=== PATIENT | female | born 1940 | race Caucasian/White ===

== ENCOUNTER → 2020-10-27 15:59 | Outpatient (CLI) | payer MEDICARE, OTHER, SELFPAY ==
--- NOTE | 2020-10-27 16:07 | DI.MRI.S_ITS ---
PROCEDURE: MR LUMBAR SPINE WO CON INDICATIONS: Low back and bilateral hip pain TECHNIQUE: Noncontrast sagittal T1 spin echo and T2 fast echo, sagittal STIR, axial T1 and T2 fast spin echo through the lumbar spine. In cases with scoliosis, additional coronal T2 fast spin echo may be performed. COMPARISON: None. FINDINGS: Image quality: Excellent. Alignment and Curvature: And tear listhesis of L4 on L5 measuring 3 mm. Otherwise normal alignment. Vertebral body heights maintained. Bone Marrow: No suspicious focal marrow signal abnormality. Mild periarticular marrow edema in association with L4-L5 and L5-S1 facet osteoarthropathy. Spinal Cord: Conus medullaris terminates at the normal level. Visualized cord demonstrates normal signal and size. Regional Soft Tissues: No prevertebral or paraspinous soft tissue mass. In the left renal hilar region there is a 1.8 cm focus of intermediate T1 and low T2 signal, nonspecific. This appears to be within the collecting system, although this is not definitive. T12-L1: No spinal canal or neural foraminal stenosis. L1-L2: No spinal canal or neural foraminal stenosis. L2-L3: Diffuse disc bulge flattens and indents the ventral thecal sac. Disc material displaces the descending L3 nerve roots within both subarticular zones. Foraminal components of the disc bulge and facet hypertrophy contribute to mild bilateral neural foraminal stenosis. Small facet effusions. L3-L4: Diffuse disc bulge and a superimposed broad-based posterior disc protrusion flatten the ventral thecal sac. Disc material abuts and may slightly displace the descending L4 nerve roots within both subarticular zones. Mild bilateral neural foraminal narrowing related to facet hypertrophy and foraminal components of the disc bulge. L4-L5: Pseudobulge related to anterolisthesis as well as true disc bulge and bulky facet osteoarthropathy along with buckling of the ligamentum flavum combine to produce overall severe spinal canal stenosis. There is complete effacement of CSF in the thecal sac at this level with crowding of the traversing nerve roots (series 6, image 22 these factors combine to produce severe right and moderate left neural foraminal stenosis. There is flattening of the exiting right L4 nerve root within the neural foramen. L5-S1: Disc bulge with mild mass effect upon the S1 nerve roots. No neural foraminal stenosis. IMPRESSION: Severe spinal canal stenosis and right neural foraminal stenosis at L4-L5, driven primarily by anterolisthesis and disc height loss along with facet hypertrophy. Less advanced degenerative changes at the remaining levels as described above. Approximately 1.8 cm focus of intermediate T1 and low T2 signal intensity in the left renal hilum, which appears to be within the left renal pelvis and presumably therefore a calculus. A renal artery aneurysm would appear similar, however. Renal protocol CT of the abdomen is recommended to further evaluate. Dictated by: Nima Brown M.D. on 10/30/2020 at 9:57 Approved by: Nima Brown M.D. on 10/30/2020 at 10:35
--- NOTE | 2020-10-27 16:07 | DI.MRI.S_ITS ---
PROCEDURE: MR CERVICAL SPINE WO CON INDICATIONS: Bilateral arm numbness TECHNIQUE: Noncontrast sagittal T1 spin echo and T2 fast spin echo, sagittal STIR, foraminal oblique sagittal T2 fast spin echo, and axial gradient echo or T2 fast spin echo through the cervical spine. COMPARISON: None. FINDINGS: Image quality: Excellent. Alignment and Curvature: Degenerative straightening of the usual cervical lordosis. Degenerative anterolisthesis of C4 on C5 measuring 3 mm. Vertebral body heights maintained. Bone Marrow: No suspicious focal marrow signal abnormality. Degenerative endplate signal changes at C4-C5, C5-C6, and C6-C7, including mild marrow edema. Spinal Cord: Normal morphology and signal intensity of the cervical cord. There is no syrinx. Regional Soft Tissues: Prevertebral and paraspinous soft tissues are within normal limits. C2-C3: No spinal canal or neural foraminal stenosis. C3-C4: Facet and uncovertebral hypertrophy contribute to moderate left and mild right neural foraminal narrowing. No spinal canal stenosis. C4-C5: Disc bulge flattens the ventral cord. Facet and uncovertebral hypertrophy contribute to moderate left and mild right neural foraminal stenosis. C5-C6: Moderate bilateral neural foraminal stenosis related to facet and uncovertebral hypertrophy. Posterior disc osteophyte complex flattens the ventral cord and also posteriorly displaces the cord, producing overall moderate spinal canal stenosis. There is complete effacement of the CSF surrounding the cord. C6-C7: Posterior disc-osteophyte complex flattens the ventral cord and posteriorly displaces the cord. Near complete effacement of CSF surrounding the cord, comprising overall moderate spinal canal stenosis. Facet and uncovertebral hypertrophy contribute to moderate-severe neural foraminal narrowing on the right and moderate neural foraminal narrowing on the left. C7-T1: No spinal canal or neural foraminal stenosis. IMPRESSION: Moderate spinal canal stenosis at C5-C6 and C6-C7. Varying degrees of neural foraminal stenosis up to moderate-severe on the right at C6-C7 and moderate at additional levels as described above. Dictated by: Nima Brown M.D. on 10/30/2020 at 8:53 Approved by: Nima Brown M.D. on 10/30/2020 at 8:59
== END ==
PROVIDERS: PCP Internal Medicine; Referring Provider Physical Medicine & Rehabilitation; Visit Provider Physical Medicine & Rehabilitation
DX: M48.061 Spinal stenosis, lumbar region without neurogenic claudication (principal); M54.12 Radiculopathy, cervical region; R20.0 Anesthesia of skin
CPT/HCPCS: 72141; 72148

== ENCOUNTER → 2021-12-24 13:13 | Outpatient (CLI) | payer MEDICARE, OTHER, SELFPAY ==
[2021-12-24 17:16] LABS: COVID19 -Nasal RAPID Negative (Negative)
== END ==
PROVIDERS: PCP Internal Medicine; Visit Provider Family Medicine Sleep Medicine
DX: Z20.822 Contact with and (suspected) exposure to COVID-19 (principal)
CPT/HCPCS: 87635; C9803

== ENCOUNTER 2021-12-26 12:10 | Inpatient (IN) | payer MEDICARE, OTHER, SELFPAY ==
[2021-12-17 15:46] VITALS: BMI 18.0
[2021-12-26] VITALS (13 sets, daily range): BP systolic 97–127; BP diastolic 47–72; PULSE 73–95; RESP 12–18; TEMP 36.2–36.7; O2SAT 94–100; BMI 18.0
--- NOTE | 2021-12-26 | DI.RAD.S_ITS ---
PROCEDURE: XR LUMBAR SPINE 2-3V INDICATIONS: L4-5 TLIF TECHNIQUE: 2 intraoperative spot views of the lumbar spine were acquired. COMPARISON: None. FINDINGS: Lower lumbar fusion and interbody device placement has been performed. IMPRESSION: Intraoperative imaging as above. Dictated by: Vesta Palencia M.D. on 12/26/2021 at 16:57 Approved by: Vesta Palencia M.D. on 12/26/2021 at 16:58
[2021-12-26] MEDS: LACTATED RINGERS 1,000 ML 42 ML IV (12:52)
[2021-12-26] MEDS: CEFAZOLIN 2 GM/20 ML SYRINGE IV (13:45)
--- NOTE | 2021-12-26 14:07 | SUR.OPER ---
Prone on spine table, head in foam head support, padded chest and pelvic supports, gel pad at knees, lower legs supported by pillows; nipples, genitalia and toes free of pressure, arms secured on foam padded arm boards at <90 degrees abduction. Tape over blanket at thigh secured to table.
[2021-12-26] MEDS: BUPIVACAINE 0.25% (PF) 60 ML, EPINEPHrine 0.3 MG INJ (15:44)
[2021-12-26] MEDS: BUPIVACAINE LIPOSOME 266 MG/20 ML VIAL INJ (15:44)
--- NOTE | 2021-12-26 16:05 | PM.OP.1 ---
Operative Date/Time/Diagnoses Date of procedure: 12/26/21 Time of procedure: 12:33 Pre-op diagnosis: 1. L4-5 spondylolisthesis 2. L4-5 spinal stenosis with neurogenic claudication Post-op diagnosis: same Procedure & Clinicians Procedure: 1. L4-5 Postero-lateral and posterior interbody fusion 2. L4-5 interbody cage placement. 3. L4-5 decompressive laminectomy with bilateral facetecomies 4. L4-5 Posterior non-segmental instrumentation 5. [place] of bone marrow from iliac crest 6. Utilization of microsurgical technique and operating microscope Same procedure as scheduled: Yes Indications: Patient has been having chronic back pain and worsening lumbar radiculopathy and symptoms of neurogenic claudication due to spondylolisthesis and spinal stenosis. Patient failed multiple conservative management with worsening pain weakness and numbness in her lower extremity. Patient has been having difficulty performing activity of daily living. After discussing risks benefits of treatment options, patient elected proceed with surgery. Surgeon: Keron Linder Funeral Pre Arrangement Specialist: Diane Asencio Click Yes if Unassisted: No Anesthesia Type: General Operative Notes Closure Type: primary Specimen(s): none sent Prosthetic devices, grafts, tissues, transplants, or devices: Globus Revolve screws, Rise cage Estimated Blood Loss (mL): 50 Blood products transfused: none Procedure in detail: Patient was seen in the preoperative area. Risks and benefits of the surgery was discussed with the patient. Informed consent was obtained from the patient and placed in the chart. Surgical site was marked. Patient was taken to the operative room. General anesthesia was administered. Prophylactic antibiotic was given to the patient less than 30 min before the incision was made. Patient was placed into a prone position on the Orion table. Patient's back was then prepped and draped in the sterile fashion. Time-out was performed at this time. Using AP and lateral C-arm imaging the interval between L4-5 was identified and marked on patient's back. A 2 inch incision 2 in from midline was made on the right side first. The fascia was incised in line with skin incision. Globus MARS retractors was placed inside the incision and docked onto the L4 lamina. Using microsurgical technique and operating microscope, a L4 laminectomy and L4-5 facetectomy was performed using a [place] rongeur. Patient was found have severe central and neural foraminal stenosis which was fully decompressed after the laminectomy and facetectomy was completed. Patient was also found to have severe hypertrophic ligamentum flavum which was also resected during the process of laminectomy and decompression to further decompress the epidural space. The disc space at L4-5 was identified. And a total diskectomy was performed at L4-5 level. The endplates were decorticated using a rasp and shaver. The total diskectomy and decortication was performed at L4-5 level in order to to accomplish a L4-5 fusion. The local bone from the laminectomy and facetectomy was saved for local bone grafting. After the total diskectomy and decortication was completed, Trifecta bone graft material was combined with local bone that was harvested earlier. At this time, a separate skin is incision was made over the iliac crest. A Jamshidi needle was inserted into the iliac crest through a separate skin incision. 5 cc of bone marrow aspiration was obtained through the separate skin incision using a Jamshidi needle from the iliac crest. The bone marrow aspiration was combined with local bone and the Trifecta bone grafting material. The bone grafting material was placed into the L4-5 interbody space along with a expandable cage. The cage was expanded to its maximum height using the torque limiting screwdriver. At this time a mirror image incision was made on the left side. The fascia was incised in line with the skin incision. Globus MARS retractor was inserted and docked onto the L4-5 posterolateral gutter. Using the power drill, posterior-lateral decortication was performed at L4-5 level until bleeding cortical bone was identified. The remaining bone grafting material was placed into the L4-5 posterior lateral gutter he order to accomplish posterolateral fusion at the L4-5 level. Using the double C-arm technique, pedicle screws were placed into the L4-5 pedicles bilaterally. This was done by placing the Jamshidi needle into the pedicles, then placing the guidewires over the Jamshidi needle, and finally placing the cannulated screws over the guidewires bilaterally. After the pedicle screws were placed, 2 titanium rods was locked into the heads of the pedicle screws using locking caps and torque limiting screwdriver. Threaded reducers were used to reduce the patient's spondylolisthesis and appropriate reduction and maintenance of reduction was accomplished using the hardwares. After all the hardware was placed, and confirmed with AP and lateral C-arm imaging, the wound was then irrigated with sterile normal saline and packed with Ray-Magy gauze for 3 min to accomplish hemostasis. After the gauze was removed the deep fascia was closed with #1 Vicryl suture. The subcutaneous layer was closed with 2-0 Vicryl. The skin was closed with skin lanie. Patient tolerated the procedure well. There were no complications. Complications: none Post-operative Condition: stable Disposition: PACU Plan for aftercare: Admit to inpatient hospital
[2021-12-26] MEDS: fentaNYL 100 MCG/2 ML INJ IV ×2 (16:15→16:25)
--- NOTE | 2021-12-26 16:53 | SUR.PHASEI ---
report called to Mikal Cameron and opportunity for questions given. Return phone number at time of report is [phone]. Pt being transferred to room 204. pt currently resting in best comfortably. Pt updated on transfer and is agreeable.
[2021-12-26] MEDS: ACETAMINOPHEN 325 MG TABLET 650 MG PO (16:59)
[2021-12-26] MEDS: SODIUM CHLORIDE 0.9% 1,000 ML 100 ML IV (18:01)
[2021-12-26] MEDS: OXYCODONE IR 5 MG TABLET 10 MG PO ×2 (18:01→21:59)
[2021-12-26] MEDS: GABAPENTIN 100 MG CAPSULE PO (21:52)
[2021-12-26] MEDS: VIT C/E/ZN/COPPR/LUTEIN/ZEAXAN CAPSULE 1 CAP PO (21:52)
[2021-12-26] MEDS: ALPRAZolam 0.25 MG TABLET PO (21:52)
[2021-12-26] MEDS: CEFAZOLIN 1 GM VIAL IV (22:27)
[2021-12-27 00:35] VITALS: BP 111/54; PULSE 76; RESP 18; TEMP 36.6; O2SAT 95
[2021-12-27] MEDS: OXYCODONE IR 5 MG TABLET 10 MG PO ×3 (03:52→12:38)
[2021-12-27 04:07] VITALS: BP 100/53; PULSE 75; RESP 18; TEMP 36.6; O2SAT 97
[2021-12-27] MEDS: CEFAZOLIN 1 GM VIAL IV (05:56)
[2021-12-27] MEDS: PANTOPRAZOLE DR 20 MG TABLET PO (05:56)
[2021-12-27 07:45] VITALS: BP 99/54; PULSE 79; RESP 16; TEMP 36.6; O2SAT 98
--- NOTE | 2021-12-27 07:48 | P.DS_ITS ---
History of Present Illness History of Present Illness Date Patient Seen: 12/27/21 Time Patient Seen: 07:48 Chief complaint: *OPB* TLIF Narrative: Operative Date/Time/Diagnoses Date of procedure: 12/26/21 Time of procedure: 12:33 Pre-op diagnosis: 1. L4-5 spondylolisthesis 2. L4-5 spinal stenosis with neurogenic claudication Post-op diagnosis: same Procedure & Clinicians Procedure: 1. L4-5 Postero-lateral and posterior interbody fusion 2. L4-5 interbody cage placement. 3. L4-5 decompressive laminectomy with bilateral facetecomies 4. L4-5 Posterior non-segmental instrumentation 5. [place] of bone marrow from iliac crest 6. Utilization of microsurgical technique and operating microscope Same procedure as scheduled: Yes Indications: Patient has been having chronic back pain and worsening lumbar radiculopathy and symptoms of neurogenic claudication due to spondylolisthesis and spinal stenosis. Patient failed multiple conservative management with worsening pain weakness and numbness in her lower extremity.? Patient has been having difficulty performing activity of daily living.? After discussing risks benefits of treatment options, patient elected proceed with surgery. Surgeon: Keron Linder Head Machine Feeder: Diane Asencio Click Yes if Unassisted: No Anesthesia Type: General Operative Notes Closure Type: primary Specimen(s): none sent Prosthetic devices, grafts, tissues, transplants, or devices: Globus Revolve screws, Rise cage Estimated Blood Loss (mL): 50 Blood products transfused: none Discharge Providers Provider Discharge Date: 12/27/21 Primary care physician: Eleonora Bartholomew MD Consults: 12/26/21 17:08 Consult to Occupational Therapy Evaluate & Treat Comment: Physician Instructions: Evaluate and treat Consult to Physical Therapy Evaluate & Treat Comment: Physician Instructions: Evaluate and Treat 12/26/21 17:54 Consult to Dietitian, Adult Routine Comment: Reason For Exam: weight loss Discharge provider: Diane Asencio PA-C Summary Hospital Course Discharge Diagnosis: s/p L4-5 transforaminal lumbar interbody fusion w/ posterior instrumentation Acute anemia d/t expected surgical blood loss Hospital Course: Ms Cope'martin hospital course was unremarkable. On POD#1 she was feeling well. She was eating and voiding without difficulty. She was evaluated by PT. Her pain was well-controlled with oral medication, and she wanted to go home with the help of her brother and his , who is a nurse. She had some pain across her low back but denied pain in her legs. Exam Vital Signs (past 8 hours): - 12/27/21 00:35 12/27/21 04:07 Temperature 97.9 F 97.9 F Pulse Rate 76 75 Respiratory Rate 18 18 Blood Pressure 111/54 L 100/53 L Pulse Oximetry 95 97 Oxygen Delivery Method Nasal Cannula Oxygen Flow Rate 0 Narrative Exam Narrative: 5/5 strength in hip flexors, quadriceps, hamstrings, DF, PF, EHL bilaterally. Sensation to light touch intact in BLE. Calves soft, compressible, nontender and without palpable cords or masses. Dressing placed intraoperatively is CDI. [facility] Medical History (Updated 12/17/21 @ 16:48 by Gayle Tejeda RN) GERD (gastroesophageal reflux disease) Hiatal hernia History of kidney stones Irritable bowel Primary osteoarthritis of first carpometacarpal joint of left hand Primary osteoarthritis of hips, bilateral Spinal stenosis of lumbar region with neurogenic claudication Spondylolisthesis at L4-L5 level Surgical History (Updated 12/27/21 @ 07:44 by Diane Asencio PA-C) H/O carpal tunnel repair History of appendectomy History of cataract extraction with lens replacement History of hysterectomy (~1984) Social History household members: none Smoking Status: Never smoker alcohol intake: current Discharge Assessment & Plan Assessment and Plan Assessment: s/p L4-5 transforaminal lumbar interbody fusion w/ posterior instrumentation Acute anemia d/t expected surgical blood loss Plan of Treatment: Discharge home. Discharge Plan Discharge Plan Patient Disposition: Home Discharge orders & Medications Discharge Orders: Discharge (Order); Ordered 12/27/21 Ordered By: Diane Asencio Prescriptions: New docusate sodium 100 mg Capsule 100 mg PO BID PRN (Reason: constipation) Qty: 60 0RF hydroxyzine pamoate 25 mg Capsule 25 mg PO Q4HR PRN (Reason: muscle spasm) Qty: 120 1RF oxycodone 5 mg Tablet 5 mg PO Q3HR PRN (Reason: Pain, Severe (7-10)) Qty: 60 0RF Continued sumatriptan succinate 50 mg Tablet 50 mg PO Q2-4H PRN (Reason: Migraine Headache) 0RF valsartan-hydrochlorothiazide 80-12.5 mg Tablet 1 tab PO DAILY 0RF alprazolam 0.25 mg Tablet See Rx Instructions .ROUTE .COMPLEX 0RF Label Comments: Rx Instructions: 1-1 1/2 tabs at bedtime lansoprazole 15 mg Capsule,Delayed Release(Dr/Ec) 15 mg PO DAILY 0RF Rx Instructions: take 1 capsule by oral route every day 30 minutes to 1 hour before a meal ascorbic acid (vitamin C) 1,500 mg Tablet 1 tab PO DAILY 0RF gabapentin 100 mg Capsule 100 mg PO SEEINSTR 0RF Rx Instructions: 100mg TID and 1-3 caps at night glucosamine-chondroitin [Cosamin DS] 500-400 mg Tablet 1 tab PO BID 0RF Rx Instructions: 2989-4813 cholecalciferol (vitamin D3) [Vitamin D3] 10 mcg (400 unit) Capsule 10 mcg PO DAILY 0RF zinc 50 mg Capsule 50 mg PO DAILY 0RF PreserVision AREDS-2 250-90-40-1 mg Capsule 1 tab PO BID 0RF biotin 5,000 mcg Tablet,Disintegrating 5,000 mcg PO DAILY 0RF [place] 3-6-9 1 cap PO DAILY 0RF venlafaxine 37.5 mg Capsule,Extended Release 24hr 75 mg PO DAILY 0RF diphenoxylate-atropine 2.5-0.025 mg Tablet 1 tab PO QID PRN (Reason: Diarrhea) 0RF acetaminophen 500 mg Tablet 500 mg PO TID PRN (Reason: Pain) 0RF acetaminophen 650 mg Tablet Extended Release 1,300 mg PO BEDTIME 0RF levothyroxine 75 mcg Tablet 75 mcg PO DAILY 0RF cyclosporine [Restasis] 0.05 % Dropperette 1 drp EYE-BOTH BID 0RF turmeric 400 mg Capsule 500 mg PO BID 0RF Probiotic 1 cap PO BID 0RF Discontinued meloxicam 15 mg Tablet 15 mg PO BID 0RF Follow up/Referrals: Eleonora Bartholomew MD [Primary Care Provider] - Keron Linder MD [Physician] - As previously scheduled (Follow up w/ Dr Linder on 01/08/2022 @ 1:30 pm at [facility] in [place]) Diet/Activity/Treatments Diet: Diet as Tolerated Activity: No deep bending or twisting at the waist. No lifting more than 20 pounds. Cold/Heat Therapy: Heating pad to back as needed for pain/comfort. Skin/Wound/Dressing Care Report to your healthcare provider any signs of infection, such as:: chills, fever, night sweats, unusual drainage and unusual redness Dressing: May shower, but keep dressing as dry as possible. Change to clean, dry gauze if it becomes wet inside. No bathing or otherwise soaking incisions. Do not apply any creams, lotions, or ointments to incisions. Visit Report/Discharge Packet Instructions: DI for Transforaminal Lumbar Interbody Fusion Stand Alone Forms: Surgery Discharge Discharge Data Primary Care Provider: Eleonora Bartholomew Attending Provider: Keron Linder VTE Deep Vein Thrombosis/Pulmonary Embolism Present on Admission: No
[2021-12-27] MEDS: ASCORBIC ACID 500 MG TABLET 1500 MG PO (09:06)
[2021-12-27] MEDS: CHOLECALCIFEROL (VITAMIN D3) 400 UNIT TABLET PO (09:07)
[2021-12-27] MEDS: VIT C/E/ZN/COPPR/LUTEIN/ZEAXAN CAPSULE 1 CAP PO (09:07)
[2021-12-27] MEDS: FISH OIL 1,000 MG CAPSULE 1000 MG PO (09:08)
[2021-12-27] MEDS: GABAPENTIN 100 MG CAPSULE PO (09:09)
[2021-12-27] MEDS: LEVOTHYROXINE 75 MCG TABLET PO (09:10)
[2021-12-27] MEDS: LACTOBACILLUS ACIDOPHILUS TABLET 1 EACH PO (09:10)
[2021-12-27] MEDS: VENLAFAXINE ER 37.5 MG CAP 75 MG PO (09:10)
[2021-12-27] MEDS: CYCLOSPORINE 0.05% 1 EACH EYE-BOTH (09:11)
--- NOTE | 2021-12-27 10:39 | PT.IIE ---
Current Diagnoses Spinal stenosis, lumbar region with neurogenic claudication (12/26/21) Ankylosing hyperostosis [[place]], lumbar region (12/26/21) Arthrodesis status (12/26/21) Surgery Performed Operation Date: 12/26/21 14:15 Actual Procedures p L4-5 TLIF - Keron Linder MD Medical History (Last Updated 12/17/21 @ 16:48 by Gayle Tejeda RN) GERD (gastroesophageal reflux disease) Hiatal hernia History of kidney stones Irritable bowel Primary osteoarthritis of first carpometacarpal joint of left hand Primary osteoarthritis of hips, bilateral Spinal stenosis of lumbar region with neurogenic claudication Spondylolisthesis at L4-L5 level Physical Therapy Inpatient Evaluation/Re-Eval M1 PT/OT-IP Prior Functional Status Start: 12/27/21 10:26 Freq: Status: Active Protocol: Document 12/27/21 10:26 BC (Rec: 12/27/21 10:39 [id number]) Medical Review Prior Functional Status Medical History Reviewed Yes Mobility and Gait Independent with all mobility and ADL's. No need of assistive device. Lives alone in a two story home with two steps to enter. Lives only on first floor of home. Social History Household Members none Living Arrangements House Number of Floors (Floors) Two Floors Number of Stairs To Enter/Railing? 2 steps to enter Home Environment Standard Height Toilet,Walk in Shower Home Equipment Four Wheel Walker,Grab Bars Near Toilet,Grab Bars In Shower Employment Status Retired Additional Social History Comment Retired nurse. M2 PT-IP Current Condition Start: 12/27/21 10:26 Freq: Status: Active Protocol: Document 12/27/21 10:26 BC (Rec: 12/27/21 10:39 [id number]) Physical Therapy Current Condition Current Condition Evaluation Date 12/27/21 Treatment Diagnosis difficulty with ambulation Onset Date 12/26/2021 M3 PT-IP Subjective Start: 12/27/21 10:26 Freq: Status: Active Protocol: Document 12/27/21 10:26 BC (Rec: 12/27/21 10:39 [id number]) Subjective Physical Therapy Visit Type Type Initial Evaluation Visit Start Time 09:20 Visit Stop Time 10:05 Total Visit Minutes 39 Physical Therapy Visit Comments Patient Comments Pt reports pain as a dull ache . Patient Goals To discharge home. She is grateful her brother and BETHANY are here to assist her. Therapy Pain Assessment Pain When Pain Assessed At Rest Pain Present Pain Present Pain Reported Location low back Intensity 5 Scale Used Numeric (0 - 10) Description Aching M4 PT-IP Mobility and Gait Start: 12/27/21 10:26 Freq: Status: Active Protocol: Document 12/27/21 10:26 BC (Rec: 12/27/21 10:39 BC [id number]) PT-Bed Mobility Assessment Rolling Type of Rolling Log Rolling Level of Assist Contact Guard Assistance Supine to Sit Supine to Sit Standby Assistance Scooting Scooting to Edge of Bed Independent PT-Transfer Assessment Sit to and From Stand Sit to and from Stand Independent,Standby Assistance Equipment Transfer Assistive Device Gait Belt,Front Wheeled Walker Transfers Transfer Destination Bed,Chair,Toilet Transfer Technique Stand Step Pivot Transfer Ability Level of Assist Independent,Standby Assistance Comments Mobility Comments Using FWW for stand pivot transfers. Completed transfers to<>from EOB, recliner and commode. Gait Assessment Gait Gait Assistance Required: Standby Assistance Distance (Feet) 100 Assistive Devices Assistive Device Gait Belt,Front Wheeled Walker Gait Deviations General Gait Pattern Decreased Stride Length Factors Limiting Gait Function Factors Limiting Gait Function Pain Comments Gait Comments Overall slower gait speed but no LOB or buckling of LEs with ambulation. Use of FWW for support/balance. 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 Pt is managing steps with SBA to CGA safely. PT-Balance Assessment Sitting Balance and Reactions Static Sitting Balance Ability Normal Dynamic Sitting Balance Ability Normal Standing Balance and Reactions Static Standing Balance Ability Good Dynamic Standing Balance Ability Good Device Used FWW Comments Other Balance Tests/Deviations/Treatment Pt maintained balance during : hand hygiene without UE support and during don/doffing of brief with UE support on grab rail. M5 PT-IP Objective Assessments Start: 12/27/21 10:26 Freq: Status: Active Protocol: Document 12/27/21 10:26 BC (Rec: 12/27/21 10:39 [id number]) Orientation Orientation/Cognition Level of Alertness Alert Orientation Name,Date,Place,Situation Gross Range of Motion Upper Extremity ROM Assessment Within Functional Limits Lower Extremity ROM Assessment Within Functional Limits Strength Upper Extremity Strength Assessment Within Functional Limits Lower Extremity Strength Assessment Within Functional Limits Knee 5 Ankle 5 Comments Strength Comments BLE hip MMT not completed at this time but functionally she is demonstrating good strength symmetrically. Coordination Assessment Gross Coordination Gross Coordination WNL Sensation Assessment Sensation Gross Sensation WNL Muscle Tone Muscle Tone WNL Yes M6 PT-IP Treatment Start: 12/27/21 10:26 Freq: Status: Active Protocol: Document 12/27/21 10:26 (Rec: 12/27/21 10:39 [id number]) Physical Therapy Treatment Education Education Provided Precautions,Post-Op Packet, Safety Brace Education Patient Other Treatments Other Treatment Performed Discussed 4WW vs FWW. Pt has a large 4WW from her spouse but after discussion and trial report FWW feels more stable. She is going to obtain a FWW from [employer]. M7 PT-IP Assessment and Plan Start: 12/27/21 10:26 Freq: Status: Active Protocol: Document 12/27/21 10:26 (Rec: 12/27/21 10:39 [id number]) PT Summary Assessment and Plan Potential Rehabilitation Potential Excellent Status of Condition at Evaluation Stable Summary Impairments Pain,Activity Tolerance Progress Towards Goals Progressing Toward Goals Assessment Summary Pt is admitted s/p elective L4 -L5 fusion c. laminectomy. She is a retired nurse. She lives independently and has had no prior need for assistive devices or therapy. Her brother and BETHANY are in town from [place] to assist her at home upon her discharge. CLOF: BP sitting in chair 117/ 49. Pt is demonstrating SBA to CGA for all mobility including stairs, ambulation, bathroom transfers and hygiene care. She was educated on spinal precautions and application to transfers including bed mobility and car transfers. Pt is going to obtain a FWW from [employer] vs using her family members 4WW. She is able to safely ascend/descend the 2 steps to enter her home if family is providing assist with walker mgmt and SBA for safety. Pt states no further questions or concerns about her discharge home. She feels she has the needed support with her family . Recommend d/c home with family support as needed and FWW ( from [employer]). Goals Bed Mobility Goal Standby Assistance Gait Goal Standby Assistance Gait Distance 150 Days to Meet Goals 2 Frequency of Treatment Frequency Of Treatment Twice a Day Treatment Plan Physical Therapy Treatment Plan Bed Mobility Training,Gait Training,Post Op Education, Discharge Planning Precautions Lumbar Precautions Log Roll,No Twisting,Limit Bending,Lifting Restriction of 10 lbs,Gait Belt above Incisional Area Recommendations To Nursing Amount of Assist Needed Standby Assistance Discharge Recommendations PT Discharge Recommendations Home with Assistance Equipment Needed for Home Before FWW - Pt to obtain from [facility] Has 4WW at home Transportation Needs at Discharge Private Vehicle
--- NOTE | 2021-12-27 10:57 | OT.IP.EVAL ---
Current Diagnoses Spinal stenosis, lumbar region with neurogenic claudication (12/26/21) Ankylosing hyperostosis [[place]], lumbar region (12/26/21) Arthrodesis status (12/26/21) Surgery Performed Operation Date: 12/26/21 14:15 Actual Procedures p L4-5 TLIF - Keron Linder MD Past Medical History (Last Updated 12/17/21 @ 16:48 by Gayle Tejeda, RN) GERD (gastroesophageal reflux disease) H/O carpal tunnel repair Hiatal hernia History of appendectomy History of cataract extraction with lens replacement History of hysterectomy (~1984) History of kidney stones Irritable bowel Primary osteoarthritis of first carpometacarpal joint of left hand Primary osteoarthritis of hips, bilateral Spinal stenosis of lumbar region with neurogenic claudication Spondylolisthesis at L4-L5 level Surgical History (Last Updated 12/17/21 @ 16:48 by Gayle Tejeda, RN) H/O carpal tunnel repair History of appendectomy History of cataract extraction with lens replacement History of hysterectomy (~1984) Occupational Therapy Inpatient Evaluation/Re-Eval M1 PT/OT-IP Prior Functional Status Start: 12/27/21 10:26 Freq: Status: Active Protocol: Document 12/27/21 10:26 (Rec: 12/27/21 10:39 [id number]) Medical Review Prior Functional Status Medical History Reviewed Yes Mobility and Gait Independent with all mobility and ADL's. No need of assistive device. Lives alone in a two story home with two steps to enter. Lives only on first floor of home. Social History Household Members none Living Arrangements House Number of Floors (Floors) Two Floors Number of Stairs To Enter/Railing? 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 Current Condition Start: 12/27/21 11:49 Freq: Status: Active Protocol: Document 12/27/21 10:01 [facility] (Rec: 12/27/21 12:08 [facility] [id number]) Occupational Therapy Current Condition Current Condition Evaluation Date 12/27/21 Treatment Diagnosis S/p L4-5 TLIF Diagnosis Onset Date 12/26/21 M3 OT- IP Subjective and Pain Start: 12/27/21 11:49 Freq: Status: Active Protocol: Document 12/27/21 10:01 [facility] (Rec: 12/27/21 12:08 [facility] [id number]) OT- Subjective Occupational Therapy Visit Type Type Initial Evaluation Visit Start Time 10:01 Visit Stop Time 10:57 Total Visit Minutes 56 Occupational Therapy Visit Comments Patient Comments Pt agreed to work with OT. Patient/Caregiver Goals TO go home. OT Pain Assessment Pain When Pain Assessed At Rest Pain Present Pain Present Denied Pain M4 OT- IP ADL's Start: 12/27/21 11:49 Freq: Status: Active Protocol: Document 12/27/21 10:01 [facility] (Rec: 12/27/21 12:08 [facility] [id number]) OT ADL-Grooming General Evaluation Grooming Ability Independent Areas Needing Assistance Retrieving/Set-up of Grooming Items OT ADL-Oral Care General Eval Oral Care Ability Standby Assistance Areas of Assistance Retrieving/Set-Up of Items Comments Oral Care Comments Cues to hinge at her hips or just spit into a cup. OT ADL-Dressing General Eval Upper Body Dressing Ability Independent Lower Body Dressing Ability Standby Assistance Comments OT Dressing Comments Pt able to comfortably cross her legs over to jeovanny/doff her socks. OT ADL-Toileting Comments OT Toileting Comments Pt not having to go at this time. Pt able to stand to wipe and has wet ones. Pt wears briefs at night. OT ADL-Bathing Comments OT Bathing Comments Suggested pt get a shower chair for safety. M5 OT- IP IADL's Start: 12/27/21 11:49 Freq: Status: Active Protocol: Document 12/27/21 10:01 [facility] (Rec: 12/27/21 12:08 [facility] [id number]) OT-Instrumental Activities of Daily Living Home Safety Awareness Home Safety Comments Pt's brother and sister in law to be there to assist for all her needs as pt a little forgetful and needing cues to help incorporate her back precautions. M6 OT- IP Functional Cognition Start: 12/27/21 11:49 Freq: Status: Active Protocol: Document 12/27/21 10:01 [facility] (Rec: 12/27/21 12:08 [facility] [id number]) Cognitive Factors Limiting Selfcare Function Cognitive Ability Level of Alertness Alert Patient Orientation Name,Place,Situation Attention Span Ability Capable of Focused Attention, Capable of Sustained Attention Ability to Follow Commands Able to Follow One Step Commands Memory Description Short Term Impaired Safety Awareness Decreased Ability to Apply Precautions Cognitive Comments Cognitive Assessment Comments Pt did not recall conversation with PT of 4ww/FWW as spoke to PT afterwards OT eval to discuss equipment needs. Pt needing cues to incorporate her back precautions as tends to twist. Pt needing concrete cues to follow at this time. OT- Vision and Hearing OT- Hearing Assessment OT- Hearing Assessment WFL OT- Vision Assessment Visual Acuity Glasses All The Time M7 OT- IP Mobility and Balance Start: 12/27/21 11:49 Freq: Status: Active Protocol: Document 12/27/21 10:01 [facility] (Rec: 12/27/21 12:08 [facility] [id number]) OT-Transfer Assessment Sit to and From Stand Sit to and from Stand Contact Guard Assistance Transfers Transfer Ability Standby Assistance,Minimal Assistance Technique Transfer Destination Chair Transfer Technique Stand Step Pivot Devices Transfer Assistive Devices None,Gait Belt,Front Wheeled Walker Comments Mobility Comments SBA with FWW and without FWW pt needing LEANNA due to unsteadiness. OT- Gait Assessment Comments Gait Ability Comments Pt states wanting to get a FWW at this time and therefore requested for FWW orders for the pt. OT- Balance Assessment Sitting Balance and Reactions Static Sitting Balance Ability Good Dynamic Sitting Balance Ability Good Standing Balance and Reactions Static Standing Balance Ability Fair Dynamic Standing Balance Ability Fair M8 OT- IP Objective Assessments Start: 12/27/21 11:49 Freq: Status: Active Protocol: Document 12/27/21 10:01 [facility] (Rec: 12/27/21 12:08 [facility] [id number]) OT-Muscle Tone Assessment Muscle Tone WNL Yes M9 OT- IP Assessment and Plan Start: 12/27/21 11:49 Freq: Status: Active Protocol: Document 12/27/21 10:01 [facility] (Rec: 12/27/21 12:08 [facility] [id number]) OT Summary Assessment and Plan Potential Rehabilitation Potential Good Analytic Complexity at Evaluation Low Summary OT Impairments Balance,Functional Cognition, Functional Mobility,Bathing Progress Towards Goals Progressing Toward Goals Assessment Summary Pt low complexity and main barriers are decreased dynamic balance, and needing reminders to incorporate her back precautions. Pt to go home with her brother and sister in law to assist pt for her needs. Goals Grooming Goal Independent Dressing Goal Independent Toileting Goal Independent Bathing Goal Independent Toilet Transfer Goal Independent Shower Transfer Goal Independent Days to Meet Goals 7 Frequency of Treatment Frequency Of Treatment Once a Day Treatment Plan OT Treatment Plan ADL Training,Functional Cognition Training,Functional Mobility,Patient/Family Education,Discharge Planning Discharge Recommendations OT Discharge Recommendations Home with 17/03 Assist Available Home Equipment Needs FWW-issued, shower chair Transportation Needs at Discharge Private Vehicle
--- NOTE | 2021-12-27 11:07 | CM.IDA ---
Initial DCP Assessment Note Pt is a 81 yo female, resident of [place], now POD#[address] surgery by Dr Linder PCP: Eleonora Bartholomew Payer: CHILANGO/Joey Reviewed chart, pt discussed in multidisciplinary rounds this morning. Therapy has cleared pt for return home w/family to assist and pt has planned for home, DC order from Ortho has already been initiated this morning. Met w/patient to introduce role; MATY Jaquez was beginning her eval. Patient explained she anticipated needing a SNF but was able to secure family assist for her discharge home No needs expected from DC planning team although will remain available in case this changes today. DOROTA Palacio Discharge Planning/Care Management CM Discharge Assessment Start: 12/27/21 11:03 Freq: Status: Active Protocol: Document 12/27/21 11:03 [facility] (Rec: 12/27/21 11:06 [id number]) Discharge Planning Assessment Assigned Storage Worker DOROTA Ruelas DPOA/Assigned Designee Name Tessa Calles dtr ([place]) Contact Information [phone] Advance Directives? 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 Yes Patient/Family Preference OP PT Therapy Barriers to Discharge No Discharge Plan Home Transportation Arrangement Family Referrals Initiated None needed
== END 2021-12-27 12:46 | disposition home or self-care (01) | DRG 455 ==
LOC: OR 12:17 → AC 15:38
PROVIDERS: Admitting Provider Orthopaedic Surgery Orthopaedic Surgery of the Spine; PCP Internal Medicine; Referring Provider Orthopaedic Surgery Orthopaedic Surgery of the Spine; Visit Provider Orthopaedic Surgery Orthopaedic Surgery of the Spine
PROC: 0SG00AJ Fusion of Lumbar Vertebral Joint with Interbody Fusion Device, Posterior Approach, Anterior Column, Open Approach (ICD-10-PCS; principal; 2021-12-26 14:15)
DX: M43.16 Spondylolisthesis, lumbar region (principal); M48.062 Spinal stenosis, lumbar region with neurogenic claudication; M46.06 Spinal enthesopathy, lumbar region; Z20.822 Contact with and (suspected) exposure to COVID-19
CPT/HCPCS: 72100; 76000; 82962; 87635; 97161; 97165; 97530; 97535; C9803; A9270; C1713; C9290; J0171; J0330; J0690; J1100; J2405; J2704; J3010

== ENCOUNTER 2024-04-01 10:30 | Day surgery (SDC) | payer MEDICARE, OTHER, SELFPAY ==
[2021-12-26 17:08] VITALS: BMI 18.0
[2024-04-01] MEDS: LACTATED RINGERS 1,000 ML 42 ML IV (10:41)
--- NOTE | 2024-04-01 10:56 | P.HP_ITS ---
History of Present Illness History of Present Illness Date Patient Seen: 04/01/24 Time Patient Seen: 10:56 Chief complaint: Colonoscopy Narrative: Mague is an 84-year-old woman here for a screening colonoscopy. Please see the office note from December for details. [facility] Medical History (Updated 01/14/24 @ 13:47 by Ramiro Thakkar MD) Prediabetes Overactive bladder Hypertension Restless leg syndrome Anxiety and depression Hypothyroidism History of kidney stones Irritable bowel GERD (gastroesophageal reflux disease) Hiatal hernia Primary osteoarthritis of first carpometacarpal joint of left hand Primary osteoarthritis of hips, bilateral Spinal stenosis of lumbar region with neurogenic claudication Spondylolisthesis at L4-L5 level Surgical History (Updated 01/14/24 @ 13:35 by Bakari Peterson RN) H/O left nephrectomy History of cataract extraction with lens replacement H/O carpal tunnel repair History of hysterectomy (~1984) History of appendectomy Social History household members: none Smoking Status: Never smoker alcohol intake: current Meds Home Medications and Allergies Home Medications Medication Instructions Recorded Confirmed Type Probiotic 1 cap PO BID 12/17/21 01/14/24 History acetaminophen 500 mg tablet 500 mg PO TID PRN Pain 12/17/21 04/01/24 History alprazolam 0.25 mg tablet See Rx Instructions .Route .COMPLEX 12/17/21 04/01/24 History lansoprazole 15 mg capsule,delayed 15 mg PO DAILY 12/17/21 04/01/24 History release levothyroxine 75 mcg tablet 75 mcg PO DAILY 12/17/21 04/01/24 History sumatriptan succinate 50 mg tablet 50 mg PO Q2-4H PRN Migraine 12/17/21 04/01/24 History Headache valsartan 80 1 tab PO DAILY 12/17/21 04/01/24 History mg-hydrochlorothiazide 12.5 mg tablet vit C 250 mg-vit E 90 mg-zinc 40 1 tab PO BID 12/17/21 04/01/24 History mg-copper 1 eu-peolpe-ebooiz capsule (PreserVision AREDS-2) zinc 50 mg capsule 50 mg PO DAILY 12/17/21 04/01/24 History ascorbic acid (vitamin C) 1,500 mg 1 tab PO DAILY 01/14/24 01/14/24 History tablet ascorbic acid (vitamin C) 500 mg 500 mg PO DAILY 01/14/24 04/01/24 History tablet venlafaxine 75 mg tablet,extended 150 mg PO QAM 01/14/24 04/01/24 History release 24 hr Allergies Allergy/AdvReac Type Severity Reaction Status Date / Time Sulfa (Sulfonamide Allergy Mild Hives on Verified 04/01/24 10:39 Antibiotics) face/neck lactose AdvReac Mild GI symptoms Verified 04/01/24 10:39 Exam Const General: No acute distress Resp Effort & Inspection: normal respiratory effort Assessment & Plan Assessment and plan (1) Colon cancer screening: Status: Acute Plan We reviewed the risks and benefits of colonoscopy and she would like to proceed Time-Based Coding :: [TOTAL MINUTES] spent with patient and on the chart (including review of chart, obtaining history, exam, reviewing outside data, placing orders, documenting exam and treatment plan, and counseling patient) on [DATE].
[2024-04-01 11:01] VITALS: BP 128/74; PULSE 76; RESP 16; TEMP 35.8; O2SAT 99
--- NOTE | 2024-04-01 11:55 | PM.OP.COLON ---
Operative Date/Time/Diagnoses Date of procedure: 04/01/24 Time of procedure: 11:55 Pre-op diagnosis: Colon cancer screening Post-op diagnosis: same Procedure & Clinicians Study performed: Colonoscopy Same procedure as scheduled: Yes Surgeon: Ramiro Thakkar Procedure Notes Procedure in detail: Surgeon: Ramiro Thakkar MD Anesthesia: Michelle Pan MD Procedure: The patient was brought to the endoscopy suite, placed in left lateral decubitus position. The patient was connected to monitoring devices. A time-out was performed. Sedation was administered. Once the patient was adequately sedated, a digital rectal exam was performed and was normal. The scope was then inserted and advanced to the cecum where the appendiceal orifice was identified and photographed. The scope was then slowly withdrawn over greater than 6 minutes. The mucosa was thoroughly inspected. No abnormalities were found. The scope was retroflexed in the rectum. The scope was straightened and removed. The patient was awakened and brought to recovery. Scope withdrawal time: 8 minutes Sedation time: 15 minutes EBL: 0 Findings: Normal colon Post-procedure Disposition: PACU
[2024-04-01 11:56] VITALS: BP 106/66; PULSE 83; RESP 12; TEMP 36.2; O2SAT 97
[2024-04-01 12:01] VITALS: BP 114/71; PULSE 91; RESP 11; O2SAT 98
[2024-04-01 12:06] VITALS: BP 111/77; PULSE 82; RESP 12; O2SAT 94
[2024-04-01 12:09] VITALS: BP 111/77; PULSE 85; RESP 14; TEMP 36.2; O2SAT 99
== END 2024-04-01 12:20 | disposition home or self-care (01) ==
PROVIDERS: PCP Nurse Practitioner; Referring Provider Surgery; Visit Provider Surgery
PROC: 0DJD8ZZ Inspection of Lower Intestinal Tract, Via Natural or Artificial Opening Endoscopic (ICD-10-PCS; CPT 45378; principal; 2024-04-01 11:30)
DX: Z12.11 Encounter for screening for malignant neoplasm of colon (principal)
CPT/HCPCS: G0121; J2704

== ENCOUNTER → 2024-09-04 13:39 | Outpatient (CLI) | payer MEDICARE, OTHER, SELFPAY ==
[2021-12-26 17:08] VITALS: BMI 18.0
--- NOTE | 2024-09-04 13:40 | DI.CT.S_ITS ---
PROCEDURE: CT CHEST WO CON INDICATIONS: follow-up 3mm RUL nodule TECHNIQUE: Noncontrast 5 mm thick sections acquired from the pulmonary apices to the posterior costophrenic angles. 1 mm lung window, 5 mm thick coronal and sagittal and 7 mm axial MIP reformats were then acquired. For radiation dose reduction, the following was used: automated exposure control, adjustment of mA and/or kV according to patient size. COMPARISON: [facility], , CT THORAX WITH CONTRAST, 08/28/2023, 12:56. FINDINGS: Image quality: Diagnostic. Lower Neck: No enlarged lymph nodes. Thyroid: No thyroid nodules which require sonographic follow up, per consensus guidelines. Axillae: No enlarged lymph nodes. Chest Wall: Unremarkable. Bones: No suspicious osseous lesion. Lungs and Pleura: No pneumothorax or pleural effusions. Central airways are clear. No consolidation or suspicious nodules. -Right upper lobe pulmonary nodule measuring 0.3 cm, (3/82), unchanged. -Right major fissure pulmonary nodule measuring 0.4 cm, (3/143), unchanged. Possibly an intrapulmonary lymph node. -Left lung base tree-in-bud opacity with calcification, (3/222), unchanged. Heart: Heart size is normal. No pericardial effusion. Thoracic Vessels: The aorta and pulmonary arteries demonstrate normal size. Mediastinum and Mirella: No enlarged lymph nodes. Cyst or pericardial fluid anterior mediastinum is unchanged. Esophagus: No wall thickening. No hiatal hernia. Upper Abdomen: Left kidney is absent. IMPRESSION: No new or enlarging pulmonary nodules. A few pulmonary nodules measuring 0.4 cm or less which are unchanged. Left nephrectomy. Dictated by: James Royal M.D. on 09/06/2024 at 9:03 Approved by: James Royal M.D. on 09/06/2024 at 9:17
== END ==
PROVIDERS: PCP Nurse Practitioner; Referring Provider Internal Medicine; Visit Provider Internal Medicine
DX: R91.8 Other nonspecific abnormal finding of lung field (principal); Z90.5 Acquired absence of kidney
CPT/HCPCS: 71250